=== PATIENT | male | born 1995 | race Two or more races ===

== ENCOUNTER 2023-11-14 06:16 | Emergency (ER) | payer SELFPAY ==
[2023-11-14 06:33] VITALS: BP 142/70; RESP 19; TEMP 98.5; BMI 24.3
[2023-11-14 08:54] VITALS: PULSE 71
== END 2023-11-14 09:45 | disposition home or self-care (01) ==
LOC: JER 06:16
DX: R00.2 Palpitations (principal); F41.9 Anxiety disorder, unspecified; F12.920 Cannabis use, unspecified with intoxication, uncomplicated
CPT/HCPCS: 93005; 93010; 99283-25

== ENCOUNTER 2023-11-22 03:05 | Emergency (ER) | payer SELFPAY ==
[2023-11-22 03:12] VITALS: BP 132/87; PULSE 72; RESP 20; TEMP 97.9; BMI 25.8
[2023-11-22] MEDS ORDERED: KETOROLAC TROMETHAMINE 30 MG/1 ML VIAL ONE (04:17)
[2023-11-22] MEDS ORDERED: LIDOCAINE 4% PATCH TP ONE (04:17)
[2023-11-22] MEDS: KETOROLAC TROMETHAMINE 30 MG/1 ML VIAL IM ONE (04:25)
[2023-11-22] MEDS: LIDOCAINE 4% PATCH TP ONE (04:26)
[2023-11-22] MEDS ORDERED: LIDOCAINE PATCH REMOVAL MC SCH (22:00)
== END 2023-11-22 05:33 | disposition home or self-care (01) ==
LOC: JER 03:05
PROC: 3E0233Z Introduction of Anti-inflammatory into Muscle, Percutaneous Approach (ICD-10-PCS; principal; 2023-11-22)
DX: R07.89 Other chest pain (principal); H92.01 Otalgia, right ear
CPT/HCPCS: 71046-TC-FY; 93005; 93010; 99284-25